=== PATIENT | female | born 1940 | race Caucasian/White ===

== ENCOUNTER → 2020-01-31 | Outpatient (CLI) | payer MEDICARE ==
[~2020-01-31] MED LIST: ALDACTONE25 MG PO; COLACE100 MG PO; CRESTOR10 MG PO; LIDODERM 5%1 PATC1 TRANSDERM; LINZESS145 MCG PO; MIRALAX17 GM PO; PERCOCET 7.5-31 EACH PO
== END ==
LOC: M.LAB 09:46 → M.CT 11:00
PROVIDERS: ATTEND Nurse Practitioner Adult Health
DX: R19.5 Other fecal abnormalities (principal); R74.8 Abnormal levels of other serum enzymes; K59.00 Constipation, unspecified; M47.815 Spondylosis without myelopathy or radiculopathy, thoracolumbar region; M41.86 Other forms of scoliosis, lumbar region

== ENCOUNTER → 2020-07-06 | Outpatient (CLI) | payer MEDICARE | LOC: M.ULTRA 09:07 | PROVIDERS: ATTEND Internal Medicine Gastroenterology | DX: R74.8 Abnormal levels of other serum enzymes (principal); N28.89 Other specified disorders of kidney and ureter ==

== ENCOUNTER → 2020-11-02 | Outpatient (CLI) | payer MEDICARE ==
[2020-11-02 13:19] LABS: CREATININE 1.5 mg/dL (0.6-1.3)
== END ==
LOC: M.LAB 08:00 → M.CT 09:00 → M.LAB 12:56
PROVIDERS: ATTEND Internal Medicine Gastroenterology
DX: K55.9 Vascular disorder of intestine, unspecified (principal)

== ENCOUNTER → 2020-12-11 | Outpatient (CLI) | payer MEDICARE | LOC: M.NUC 11-22 07:30 | PROVIDERS: ATTEND Internal Medicine Gastroenterology | DX: R11.0 Nausea (principal); R68.81 Early satiety; R10.9 Unspecified abdominal pain ==

== ENCOUNTER → 2021-02-14 | Outpatient (CLI) | payer MEDICARE ==
[2021-02-14 10:01] LABS: ABSOLUTE EOSINOPHILS 0.1 thou/uL (0.0-0.7); ABSOLUTE LYMPHOCYTES 1.3 thou/uL (0.8-5.3); ABSOLUTE MONOCYTES 0.4 thou/uL (0.0-1.2); ABSOLUTE NEUTROPHILS 2.2 thou/uL (1.6-8.1); BASOPHILS 0.7 %; EOSINOPHILS 2.8 %; HEMATOCRIT 37.6 % (37.0-47.0); HEMOGLOBIN 12.6 gm/dL (12.0-15.0); MCH 32.2 pg (26.0-34.0); MCHC 33.5 g/dL (28.0-37.0); MCV 96.1 fL (80.0-100.0); MONOCYTES 8.8 %; MPV 8.3 fl. (7.2-11.1); NUCLEATED RBCS 0 /100WBC; PLATELET COUNT* 133 thou/uL (150-400); POLYS 55.7 %; RBC 3.91 mil/uL (4.20-5.00); RDW-CV 13.9 % (10.5-14.5)
[2021-02-14 11:09] LABS: ESR (SEDRATE) 8 mm/hr (0-30)
[2021-02-14 19:25] LABS: ALBUMIN 3.8 g/dL (3.4-5.0); CALCIUM 9.1 mg/dL (8.5-10.1); CREATININE 1.4 mg/dL (0.6-1.3); TOTAL BILIRUBIN 0.5 mg/dL (<0.1-1.0); TOTAL PROTEIN 6.6 g/dL (6.4-8.2)
== END ==
LOC: M.ULTRA 08:54
PROVIDERS: ATTEND Internal Medicine Gastroenterology
DX: R10.9 Unspecified abdominal pain (principal); Z90.49 Acquired absence of other specified parts of digestive tract

== ENCOUNTER → 2021-02-26 | Outpatient (CLI) | payer MEDICARE | LOC: M.LAB 06:04 | PROVIDERS: ATTEND Internal Medicine Gastroenterology | DX: Z01.812 Encounter for preprocedural laboratory examination (principal); Z20.822 Contact with and (suspected) exposure to COVID-19 ==